=== PATIENT | female | born 1970 | race Caucasian/White ===

== ENCOUNTER 2016-09-30 17:45 | Observation (INO) | payer OTHER ==
[~2016-09-30] VITALS: Ht 152.4 cm; Wt 73.6 kg
[~2016-09-30 17:45] MED LIST: ASPIR 8181 MG PO; IMDUR ER TAB 3030 MG PO; LOPRESSOR 25 MG25 MG PO; LORTAB 5-325 M1 EACH PO; NITROSTAT0.4 MG SL; PREVACID30 MG PO; ZOLOFT25 MG PO
[2016-09-30 17:59] LABS: HEMOGLOBIN 12.3 gm/dl (12.3-15.3); RED BLOOD COUNT 4.19 M/UL (4.00-5.10); WHITE BLOOD COUNT 6.7 K/UL (4.5-11.0)
[2016-09-30 18:24] LABS: BUN/CREATININE RATIO 17 (0-10)
[2016-09-30] MEDS ORDERED: NEURONTIN 300300 MG PO (23:57)
[2016-09-30] MEDS ORDERED: IBUPROFEN600 MG PO (23:57)
[2016-09-30] MEDS ORDERED: OMEPRAZOLE20 MG PO (23:58)
[2016-09-30] MEDS ORDERED: LOPRESSOR50 MG PO (23:58)
[2016-10-01 04:46] LABS: HEMOGLOBIN 10.8 gm/dl (12.3-15.3); WHITE BLOOD COUNT 6.3 K/UL (4.5-11.0)
[2016-10-01 04:48] LABS: RED BLOOD COUNT 3.76 M/UL (4.00-5.10)
[2016-10-01 05:03] LABS: BUN/CREATININE RATIO 14 (0-10)
== END 2016-10-01 19:20 | disposition home or self-care (01) ==
LOC: ER1 17:45 → ZEROF 21:22 → M/S 21:22 → ZEROF 10-01 11:50 → M/S 10-01 19:20
PROVIDERS: Preventive Medicine Occupational Medicine; ADMIT Internal Medicine
DX: R07.89 Other chest pain (principal); R68.84 Jaw pain; I10 Essential (primary) hypertension; F19.10 Other psychoactive substance abuse, uncomplicated; F41.9 Anxiety disorder, unspecified; I25.10 Atherosclerotic heart disease of native coronary artery without angina pectoris; E78.5 Hyperlipidemia, unspecified; K21.9 Gastro-esophageal reflux disease without esophagitis; R82.99 Other abnormal findings in urine; R73.03 Prediabetes; F17.210 Nicotine dependence, cigarettes, uncomplicated; Z79.1 Long term (current) use of non-steroidal anti-inflammatories (NSAID); Z95.5 Presence of coronary angioplasty implant and graft; Z79.891 Long term (current) use of opiate analgesic; Z79.899 Other long term (current) drug therapy; Z85.42 Personal history of malignant neoplasm of other parts of uterus; Z90.710 Acquired absence of both cervix and uterus; Z87.442 Personal history of urinary calculi; Z90.49 Acquired absence of other specified parts of digestive tract; Z98.51 Tubal ligation status; Z88.2 Allergy status to sulfonamides; Z88.6 Allergy status to analgesic agent; Z88.0 Allergy status to penicillin; Z88.8 Allergy status to other drugs, medicaments and biological substances
CPT/HCPCS: 36415; 71010; 80048; 80053; 80061; 80307; 81001; 82550; 82553; 82962; 83036; 83690; 83874; 84443; 84484; 85025; 93005; 96374; 96376; 99285; G0378; J2270; J7030

== ENCOUNTER 2020-12-15 13:57 | Observation (INO) | payer MEDICARE, OTHER ==
[~2020-12-15] VITALS: Ht 144.8 cm; Wt 72.6 kg
[~2020-12-15 13:57] MED LIST changes: +CIPRO500 MG PO; +FLAGYL500 MG PO; +IBUPROFEN600 MG PO; +LOPRESSOR50 MG PO; +NEURONTIN 300300 MG PO; +OMEPRAZOLE20 MG PO
[2020-12-15 14:24] LABS: HEMOGLOBIN 13.3 gm/dl (12.3-15.3); RED BLOOD COUNT 4.54 M/UL (4.00-5.10); WHITE BLOOD COUNT 5.1 K/UL (4.5-11.0)
[2020-12-15 15:20] LABS: BUN/CREATININE RATIO 15 (0-10)
--- NOTE | 2020-12-15 23:07 | NUR ---
PATIENT LEFT AMA AT 2210, PATIENT EDUCATED ABOUT BEING IN QUARANTINE, O2 SAT LEVEL, RESTING, AND WAS SENT HOME WITH PULSE OX WITH INSTRUCTION OF USE . PATIENT EDUCATED TO RETURN TO ED IF SYMPTOMS WORSEN OR O2 LEVELS FALL. PATIENTS LAST VITAL SIGNS WERE TEMP 98.1, PULSE 88, RESPIRATIONS 21, O2 99% ON ROOM AIR, BP 142/102.
== END 2020-12-15 22:41 | disposition left against medical advice (07) ==
LOC: ER1 13:57 → CDU 15:35 → M/S 19:23
PROVIDERS: Emergency Medicine; ADMIT Internal Medicine
DX: U07.1 COVID-19 (principal); R07.9 Chest pain, unspecified; I25.10 Atherosclerotic heart disease of native coronary artery without angina pectoris; I10 Essential (primary) hypertension; I25.2 Old myocardial infarction; E78.5 Hyperlipidemia, unspecified; F17.200 Nicotine dependence, unspecified, uncomplicated; E11.9 Type 2 diabetes mellitus without complications; G40.909 Epilepsy, unspecified, not intractable, without status epilepticus; G43.909 Migraine, unspecified, not intractable, without status migrainosus; Z91.14 Patient's other noncompliance with medication regimen; Z53.29 Procedure and treatment not carried out because of patient's decision for other reasons; Z95.5 Presence of coronary angioplasty implant and graft; Z88.0 Allergy status to penicillin; Z88.2 Allergy status to sulfonamides; Z88.5 Allergy status to narcotic agent
CPT/HCPCS: 36415; 71045; 80053; 82550; 82553; 82962; 83690; 83874; 84484; 85025; 93005; 99285; G0378; U0002